=== PATIENT | female | born 1965 | race Caucasian/White ===

== ENCOUNTER 2016-12-24 01:43 | Emergency (ER) | payer MEDICAID ==
[~2016-12-24] VITALS: Ht 167.6 cm; Wt 99.8 kg
[~2016-12-24 01:43] MED LIST: APIX5TAB PO; DRON400T2 PO
[2016-12-24 01:49] VITALS: BP 170/82
[2016-12-24] MEDS ORDERED: LORAZEPAM 1 MG TABLET PO ONE (02:30)
== END 2016-12-24 03:45 | disposition home or self-care (01) ==
LOC: ER 01:49
DX: F41.9 Anxiety disorder, unspecified (principal); I48.91 Unspecified atrial fibrillation; E03.9 Hypothyroidism, unspecified
CPT/HCPCS: 93005; 99283; A4606; Z7610